=== PATIENT | female | born 1940 | race Caucasian/White ===

== ENCOUNTER 2024-03-28 12:09 | Emergency (ER) | payer OTHER ==
[~2024-03-28] VITALS: Ht 144.8 cm; Wt 58.1 kg
[2024-03-28] MEDS ORDERED: XANAX XR0.5 MG (12:44)
[2024-03-28] MEDS ORDERED: TOPROL XL50 M1 (12:44)
[2024-03-28] MEDS ORDERED: LEVOTHYROXINE25 MCG (12:44)
[2024-03-28] MEDS ORDERED: RESTORIL30 M1 (12:45)
[2024-03-28] MEDS ORDERED: VASOTEC20 MG (12:45)
[2024-03-28] MEDS ORDERED: KETOROLAC TROMETHAMINE 60 MG VIAL IM ONE (13:45)
[2024-03-28] MEDS ORDERED: CEFTRIAXONE SODIUM 1,000 MG VIAL IM ONE (13:45)
[2024-03-28 15:08] LABS: HEMATOCRIT 35.2 % (36.0-45.00); HEMOGLOBIN 11.9 g/dL (12.0-15.00); MEAN CELL VOLUME 88.5 fL (80.00-100.00); MEAN CORPUSCULAR HGB CONC 33.9 g/dl (32.0-36.0); PLATELET COUNT 291 K/uL (150-450); RED BLOOD COUNT 3.98 M/uL (4.00-6.00); RED CELL DISTRIBUTION WIDTH 14.6 % (11.5-14.5)
[2024-03-28] MEDS ORDERED: AZITHROMYCIN250 MG PO (15:51)
[2024-03-28] MEDS ORDERED: MEDROLPACK PO (15:51)
[2024-03-28] MEDS ORDERED: PEPCID AC20 MG PO (15:51)
== END 2024-03-28 16:06 | disposition home or self-care (01) ==
LOC: ER 12:11
PROVIDERS: General Practice
DX: R53.81 Other malaise (principal); J02.9 Acute pharyngitis, unspecified; I10 Essential (primary) hypertension; E03.8 Other specified hypothyroidism; Z20.822 Contact with and (suspected) exposure to COVID-19
CPT/HCPCS: 36415; 71045; 72040; 96372; 99283; J0696; J1885